=== PATIENT | male | born 1955 | race Caucasian/White ===

== ENCOUNTER 2018-10-07 02:45 | Emergency (ER) | payer BC ==
[2018-10-07] MEDS ORDERED: Ketorolac 30 MG/ML SDV IVPUSH ONE (03:02)
--- NOTE | 2018-10-07 03:05 | EDM.PDOC ---
ED HPI GENERAL MEDICAL PROBLEM - General Chief Complaint: Flank Pain Stated Complaint: KIDNEY STONE? Time Seen by Provider: 10/07/18 02:50 Source of Information: Reports: Patient History Limitations: Reports: No Limitations - History of Present Illness INITIAL COMMENTS - FREE TEXT/NARRATIVE: 63-year-old otherwise healthy male who has had kidney stones in the past presents with 3 hours of severe left-sided flank pain and nausea. He feels like he is being stabbed in his back. No dysuria, shortness of breath, chest pain or fever. Onset: Sudden Duration: Hour(s): (Pain for 3 hours started at midnight) Location: Reports: Back (Left flank) Improves with: Reports: None Associated Symptoms: Reports: Nausea/Vomiting (Some nausea no vomiting) left flank Pain Score (Numeric/FACES): 10 - Related Data Allergies Allergy/AdvReac Type Severity Reaction Status Date / Time No Known Allergies Allergy Verified 10/07/18 02:54 Home Meds: Home Meds Sildenafil Citrate [Sildenafil] 20 mg PO ASDIRECTED PRN 10/07/18 [History] Past Medical History Genitourinary History: Reports: Renal Calculus Musculoskeletal History: Reports: Fracture Social & Family History - Tobacco Use Smoking Status *Q: Never Smoker - Caffeine Use Caffeine Use: Reports: Coffee - Alcohol Use Days Per Week of Alcohol Use: 3 Number of Drinks Per Day: 1 Total Drinks Per Week: 3 - Recreational Drug Use Recreational Drug Use: No ED ROS GENERAL - Review of Systems Review Of Systems: See Below Constitutional: Denies: Fever, Chills HEENT: Reports: No Symptoms Respiratory: Reports: No Symptoms Cardiovascular: Reports: No Symptoms GI/Abdominal: Reports: Nausea. Denies: Abdominal Pain : Reports: Flank Pain Skin: Reports: No Symptoms Neurological: Reports: No Symptoms ED EXAM,LOWER BACK PAIN/INJURY - Physical Exam Exam: See Below Exam Limited By: No Limitations General Appearance: Alert, Moderate Distress Respiratory/Chest: No Respiratory Distress Cardiovascular: Regular Rate, Rhythm Back Exam: No: CVA Tenderness (R), CVA Tenderness (L) Neurological: Alert Psychiatric: Anxious Skin Exam: Warm, Dry Course - Vital Signs Last Recorded V/S: Last Vital Signs Temp 96 F 10/07/18 02:55 Pulse 65 10/07/18 02:55 Resp 18 10/07/18 02:55 BP 153/105 H 10/07/18 02:55 Pulse Ox 99 10/07/18 02:55 - Orders/Labs/Meds Meds: Medications Discontinued Medications Generic Name Dose Route Start Last Admin Trade Name Shanon PRN Reason Stop Dose Admin Ketorolac Tromethamine 30 mg 10/07/18 03:02 10/07/18 03:10 Toradol IVPUSH 10/07/18 03:03 30 mg ONETIME ONE Administration Tamsulosin HCl 0.4 mg 10/07/18 03:44 10/07/18 03:48 Flomax PO 10/07/18 03:45 0.4 mg ONETIME ONE Administration - Re-Assessments/Exams Free Text/Narrative Re-Assessment/Exam: 10/07/18 03:05 90 was started and the patient was given 30 mg of IV Toradol followed by a CT scan of the abdomen and pelvis without contrast. 10/07/18 03:[address] scan feeling much better but still having some discomfort. CT appears to have a 4 mm distal left ureteral stone. He was discharged with 10 Toradol, 10 Vicodin, and given one oral Flomax prior to discharge. He'll return if not improving in the next 1-2 days. Also return if you develop a fever. Departure - Departure Time of Disposition: 03:56 Disposition: Home, Self-Care 01 Condition: Fair Clinical Impression: Ureteric colic, Kidney stone on left side - Discharge Information Instructions: Kidney Stones, [id number] Referrals: PCP,None [Primary Care Provider] - Forms: ED Department Discharge Care Plan Goals: Take ketorolac every 6 hours while having pain, and add Vicodin as needed for extra pain control. Consider rechecking in 1-2 days if you're still having pain , or return sooner if worsening despite treatment including developing a fever.
[2018-10-07] MEDS ORDERED: Tamsulosin 0.4 MG Cap.ER PO ONE (03:44)
--- NOTE | 2018-10-07 04:50 | CRLCT ---
INDICATION: Left flank pain. TECHNIQUE: The abdomen and pelvis were scanned from the lung bases through the symphysis pubis without contrast. Sagittal and coronal reformatted images were generated. Comparison: None. FINDINGS: The lung bases are clear. No consolidations or pleural effusions. Calcified lymph node/granuloma anterior to the thoracic aorta on image 14 of series 2. The liver and spleen are unremarkable without contrast. Stomach is unremarkable. No masses in the pancreas. No gallstones in the gallbladder. No adrenal nodules. There is moderate hydronephrosis on the left with perinephric stranding this is secondary to a 4 mm stone at or near the left ureterovesical junction on image 108 of series #2. There is also a 2 mm nonobstructing stone in the left kidney on image 49. There are bilateral renal cysts. No bowel obstruction, free air or free fluid. Appendix is normal without evidence of appendicitis. Atherosclerotic changes of the aorta without evidence of aneurysm. Retained stool in the rectosigmoid. Calcifications in the prostate. No pelvic lymphadenopathy. IMPRESSION: 1. Moderate left hydronephrosis and perinephric stranding due to a 4 mm stone at the left ureterovesical junction. 2. 2 mm nonobstructing stone left kidney. 3. Bilateral renal cysts. Please note that all CT scans at this facility use dose modulation, iterative reconstruction, and/or weight-based dosing when appropriate to reduce radiation dose to as low as reasonably achievable. Dictated by Leeroy Morillo MD @ Oct 08 2018 8:50AM Signed by Dr. Leeroy Morillo @ Oct 08 2018 8:57AM
== END 2018-10-07 03:56 | disposition home or self-care (01) ==
LOC: JP.ED 02:45
DX: N13.2 Hydronephrosis with renal and ureteral calculous obstruction (principal)
CPT/HCPCS: 74176; 96374; 99284; A9270; J1885

== ENCOUNTER 2019-05-01 07:51 | Day surgery (SDC) | payer BC ==
[2019-05-01] MEDS ORDERED: Propofol 200 MG/20 ML SDV ONE ×2 (08:49→09:32)
[2019-05-01] MEDS ORDERED: Midazolam 1 MG/ML 2 ML SDV ONE (08:49)
[2019-05-01] MEDS ORDERED: fentaNYL 100 MCG/2 ML SDV ONE (08:49)
[2019-05-01] MEDS ORDERED: Lactated Ringers 1,000 ML IV SCH (09:00)
--- NOTE | 2019-05-01 15:08 | OR ---
DATE OF PROCEDURE: 05/01/2019 SURGEON: Dustin Cannon MD PREOPERATIVE DIAGNOSIS: History of colon polyps, left-sided internal hemorrhoid. POSTOPERATIVE DIAGNOSES: Diverticulosis, two small colon polyps, history of colon polyps, left-sided internal hemorrhoids. PROCEDURES PERFORMED: Colonoscopy to the cecum with biopsy resection of small hepatic flexure and transverse colon polyps, rubber band ligation of hemorrhoid. ANESTHESIA: IV anesthesia with monitored anesthesia care. INDICATION: This 64-year-old white male is referred for a colonoscopy. He has a history of colon polyps removed in [facility] 5 years ago and he was told to have another colonoscopy in 5 years. He has been told he has a left-sided hemorrhoid which he would also like to have a rubber band applied to. I counseled him for these procedures including risks and alternatives, and he gave his informed consent to proceed. DESCRIPTION OF PROCEDURE: The patient was placed in the left lateral decubitus position. IV anesthesia was administered by the Anesthesia Service. Time-out was held. A rectal exam was performed, which was unremarkable. The flexible video Olympus colonoscope was introduced through his anus, up his rectum, out his colon all the way to the cecum. En route, at the hepatic flexure, we saw a small polyp which was removed with the biopsy forceps. Once the cecum was reached, the scope was slowly withdrawn examining the mucosa throughout. In the transverse colon, we saw another small polyp which was removed with the biopsy forceps. The scope was withdrawn further with no other lesions noted, other than a single diverticulum in the left colon. The scope was retroflexed in the rectum with the distal rectum appearing fairly unremarkable. The scope was straightened and removed. Next, the anoscope was placed and we put two rubber bands on hemorrhoidal tissue on the left side of his anorectum. The scope was removed. He tolerated the procedure well. Dustin Cannon MD /[id number]
== END 2019-05-01 10:53 | disposition home or self-care (01) ==
LOC: JP.SDS 07:51
PROVIDERS: ATTEND Surgery
DX: Z12.11 Encounter for screening for malignant neoplasm of colon (principal); D12.3 Benign neoplasm of transverse colon; K64.8 Other hemorrhoids; Z87.891 Personal history of nicotine dependence; Z86.010 Personal history of colon polyps
CPT/HCPCS: 45380; 46221; 88305; J2250; J2704; J3010; J7120

== ENCOUNTER 2020-08-01 07:21 | Day surgery (SDC) | payer BC ==
[~2020-08-01 07:21] MED LIST: Midazolam 1 MG/ML 2 ML SDV ONE; Propofol 200 MG/20 ML SDV ONE; fentaNYL 100 MCG/2 ML SDV ONE
[2020-08-01] MEDS ORDERED: Sodium Chloride 0.9% 1,000 ML IV SCH (08:00)
--- NOTE | 2020-08-01 09:47 | OR ---
DATE OF PROCEDURE: 08/01/2020 SURGEON: Álvaro De Luna MD PROCEDURE: Esophagogastroduodenoscopy. FINDINGS: 1. Mild inflammation in the GE junction concerning for reflux disease (biopsied in all four quadrants). 2. Gastric polyp, multiple, one biopsied for pathological purposes. 3. Hiatal hernia, mild, less than 2 cm. COMPLICATIONS: None. LEAF TINNER: None. ANESTHESIA: MAC. PREOPERATIVE DIAGNOSIS: Concern for gastroesophageal reflux disease. POSTOPERATIVE DIAGNOSIS: Concern for gastroesophageal reflux disease. RISKS: Risks, benefits, alternatives and limitations including but not limited to infection, bleeding, and injury to abdominal structures were explained to the patient who wished to proceed. PROCEDURE IN DETAIL: The patient was placed in left lateral decubitus position. The EGD scope was introduced and advanced atraumatically to the second part of the duodenum. No evidence of duodenitis or ulceration. No old or new blood. No ulcers within the stomach itself. The patient has a few small benign-appearing polyps, the one that was atypical was compared to the others. This was biopsied using cold biopsy forceps. On retroflex, he had a small hiatal hernia. The GE junction showed inflammation consistent with reflux disease, this was biopsied in all 4 quadrants using cold biopsy forceps. Remainder of the esophagus was normal. No other abnormalities were noted. The patient tolerated the procedure well. Álvaro De Luna MD /[id number]
== END 2020-08-01 10:10 | disposition home or self-care (01) ==
LOC: JP.SDS 07:21
PROVIDERS: ATTEND Surgery
DX: K31.7 Polyp of stomach and duodenum (principal); K21.9 Gastro-esophageal reflux disease without esophagitis; K44.9 Diaphragmatic hernia without obstruction or gangrene; K29.70 Gastritis, unspecified, without bleeding; E78.5 Hyperlipidemia, unspecified
CPT/HCPCS: 43239; 88305; J2250; J2704; J3010

== ENCOUNTER 2024-10-21 07:35 | Day surgery (SDC) | payer BC, MEDICARE ==
[2024-10-21] MEDS ORDERED: Midazolam 1 MG/ML 2 ML SDV ONE (07:36)
[2024-10-21] MEDS ORDERED: Propofol 200 MG/20 ML SDV ONE (07:36)
[2024-10-21] MEDS ORDERED: fentaNYL 50 MCG/ML SDV ONE (07:36)
[2024-10-21] MEDS: Lactated Ringers 1,000 ML IV SCH (08:11)
== END 2024-10-21 11:25 | disposition home or self-care (01) ==
LOC: JP.SDS 07:35
PROVIDERS: ATTEND Surgery
DX: Z12.11 Encounter for screening for malignant neoplasm of colon (principal); D12.2 Benign neoplasm of ascending colon; K21.9 Gastro-esophageal reflux disease without esophagitis
CPT/HCPCS: 00811; 45385; 88305; J2250; J2704; J3010; J7120